=== PATIENT | male | born 1970 | race African-American/Black ===

== ENCOUNTER 2017-11-14 06:31 | Emergency (ER) | payer OTHER ==
[~2017-11-14] VITALS: Ht 185.4 cm; Wt 102.5 kg
[~2017-11-14 06:31] MED LIST: CARI-277 PO; HYDR-4683 PO
[2017-11-14 08:59] VITALS: BP 117/77
== END 2017-11-14 10:44 | disposition home or self-care (01) ==
LOC: ER 06:31
DX: S86.911A Strain of unspecified muscle(s) and tendon(s) at lower leg level, right leg, initial encounter (principal); M70.51 Other bursitis of knee, right knee; F17.210 Nicotine dependence, cigarettes, uncomplicated; X58.XXXA Exposure to other specified factors, initial encounter; Y93.89 Activity, other specified; Y92.89 Other specified places as the place of occurrence of the external cause; Y99.8 Other external cause status
CPT/HCPCS: 73562

== ENCOUNTER 2019-10-29 00:02 | Emergency (ER) | payer OTHER ==
[~2019-10-29] VITALS: Ht 185.4 cm; Wt 103.0 kg
[~2019-10-29 00:02] MED LIST changes: -HYDR-4683 PO; +HYDR-4833 PO
[2019-10-29] MEDS ORDERED: KETOROLAC TROMETH 60MG/2ML VIAL IM ONE (01:00)
[2019-10-29 01:27] VITALS: BP 117/77
== END 2019-10-29 01:46 | disposition home or self-care (01) ==
LOC: ER 00:03
DX: Z48.00 Encounter for change or removal of nonsurgical wound dressing (principal); M79.675 Pain in left toe(s); F17.210 Nicotine dependence, cigarettes, uncomplicated; Z79.899 Other long term (current) drug therapy
CPT/HCPCS: 73660; 96372; 99283; J1885

== ENCOUNTER 2025-01-07 15:49 | Emergency (ER) | payer OTHER ==
[~2025-01-07] VITALS: Ht 185.4 cm; Wt 95.8 kg
[2025-01-07 16:17] VITALS: BP 105/89; PULSE 91; RESP 19; TEMP 97.6; O2SAT 98
--- NOTE | 2025-01-07 16:46 | DVH ---
CLINICAL INDICATION: fall TECHNIQUE: 2 radiographic views of the thoracic spine were obtained. Comparison: None FINDINGS/IMPRESSION: Bony alignment is normal. There are no subluxations. HS:Y
[2025-01-07] MEDS ORDERED: METH-1181 PO (16:51)
[2025-01-07] MEDS ORDERED: IBUP-1454 PO (16:51)
--- NOTE | 2025-01-07 16:51 | ED.PDOC ---
Back pain HPI HPI Comments 34-year-old male with a pertinent MHx presents with back and neck pain following a slip and fall The patient slipped on a glazed to break at the entrance of the store resulting in nonradiating localized pain to the mid lower back. He currently rates his pain as moderate to severe and reports that the pain is aggravated with lateral movements No associated symptoms. Denies any neurological symptoms such as bladder it continence or neurological deficits No head injury no vomiting in his not on blood thinners No episode of amnesia Chief Complaint: Fall Injury Time Seen by MD: 15:59 Primary Care Provider: SHA Reviewed Notes: Nurses Notes, Medications, Allergies Allergies: Coded Allergies: NO KNOWN ALLERGIES (Unverified , 11/14/17) Home Meds Active Scripts Methocarbamol (Methocarbamol) 500 Mg Tab, 500 MG PO Q8HP PRN for 10 Days, #30 TAB 0 Refills Prov:ANNALEE ARAUJO MANAGER LABOR RELATIONS 01/07/25 Ibuprofen (Ibuprofen) 600 Mg Tab, 1 TAB PO TIDPRN PRN for 10 Days, #30 TAB 0 Refills Prov:ANNALEE ARAUJO MANAGER LABOR RELATIONS 01/07/25 Reported Medications Hydrocodone-Acetaminophen ([place] 5/325MG) 1 Tab Tb, 1 TAB PO PRN, #90 TAB 01/13/16 Carisoprodol (Soma) 350 Mg Tab, 350 MG PO PRN, TAB 01/13/16 Information Source: Patient Mode of Arrival: Ambulatory Past Medical History PAST MEDICAL HISTORY: Anxiety Surgical History: Hernia Repair Family History Family History: Unobtainable Social History Smoker: Cigarettes Alcohol: Occasionally Drugs: Denies Drug Use Lives In: Home All Other Systems: Reviewed and Negative (PER HPI) Physical Exam General Appearance: No Apparent Distress, Normal HEENT: Normal ENT Inspection, Pharynx Normal, TMs Normal Neck: Full Range of Motion, Non-Tender, Normal, Normal Inspection Respiratory: Chest Non-Tender, Lungs Clear, No Accessory Muscle Use, No Respiratory Distress, Normal Breath Sounds Cardiovascular: No Edema, No JVD, No Murmur, No Gallop, Normal Peripheral Pulses, Regular Rate/Rhythm Breast Exam: Deferred Gastrointestinal: No Organomegaly, Non Tender, No Pulsatile Mass, Normal Bowel Sounds, Soft Genitalia: Deferred Pelvic: Deferred Rectal: Deferred Extremities: No calf tenderness, Normal capillary refill, Normal inspection, Normal range of motion, Non-tender, No pedal edema Musculoskeletal : Apperance: Normal Neurologic: Alert, critical care registered nurse II-XII nml as Tested, No Motor Deficits, Normal Affect, Normal Mood, No Sensory Deficits Cerebellar Function: Normal Reflexes: Normal Skin: Dry, Normal Color, Warm Lymphatic: No Adenopathy Was a procedure done? Was a procedure done?: No Back Pain Differential Dx Differential Diagnosis: Musculoskeletal Pain X-Ray, Labs, Meds, VS Vital Signs Date Time Temp Pulse Resp B/P (MAP) Pulse Ox O2 Delivery O2 Flow Rate FiO2 01/07/25 16:17 91 19 98 Room Air 01/07/25 16:17 97.6 91 19 105/89 (94) 98 97.6 01/07/25 15:50 97.6 91 19 105/89 98 97.6 X-Ray, Labs, Meds, VS Comment I considered cauda equina, spinal cord compression, vertebral malignancy/mets, acute spinal fracture, vertebral osteomyelitis, epidural abscess, infected or obstructed kidney stone, however this is less likely as the patient does not present with lower back pain red flags symptoms such as bowel or bladder dysfunction, saddle anesthesia, paresthesia, and without any history of malignancy or recent back trauma or spinal interventions. Therefore imaging studies such as a lumbar MRI were not indicated on today's visit. Presentation most consistent with nonemergent musculoskeletal etiology versus nonemergent disc herniation. ED workup: Defer imaging and lab work for outpatient follow up at this time Disposition: Discharge. Strict return precautions discussed with the patient with full understanding. Supportive care advised (rest, ice, heat, NSAIDs, stretching exercises) Massage muscles with cold pack or ice for 20 minutes 4 times per day. Usually most useful if there is swelling during the first 48 hours Heating pad on the most painful area for 20 minutes to relieve muscle spasm Sleep and the most comfortable sleeping position (usually on the side with knees bent) Light stretching, no strenuous activity, avoid frequent bending, avoid carrying heavy objects Discussed possible benefits of yoga and acupuncture Return precautions discussed including Inability to walk/bear weight Paresthesia/weakness/leg pain Fecal/urinary incontinence Any worsening symptoms On reevaluation, patient had symptomatic improvement. Patient is stable for discharge at this time. External notes reviewed. Test results and diagnostic imaging interpreted. All diagnostic findings, discharge care, education and instructions provided Follow-up with PCP in 2 to 3 days Patient verbalized understanding and agreed to treatment plan Vital signs stable, afebrile, no acute distress noted Patient ambulatory with strong steady gait Advised to return precautions for any new or worsening symptoms, return to ER immediately for re-evaluation Patient is aware that the purpose of this visit was for an acute medical emergency requiring emergent stabilization. Chronic conditions, including malignancies have not been ruled out. Patient is instructed to follow up with PCP as directed and discharge instructions for continued care and workup. If unable to arrange follow-up, patient is to return to the emergency department for reassessment. Patient (parent or legal guardian if applicable) was given verbal and written discharge instructions and acknowledges understanding. Time of 1ST Reevaluation: 16:30 Reevaluation 1ST: Improved Patient Education/Counseling: Diagnosis, Treatment Family Education/Counseling: Diagnosis, Treatment SEPSIS Sepsis Screen Date sepsis recognized/suspect: Jan 07, 2025 Time Sepsis recognized/suspect: 155 Recent Procedure: No On Antibiotic Therapy: No Respiratory Rate >20: No Heart Rate >90: Yes Temp<36 C (96.8 F) or >38.3 C: No SBP <90 or MAP <65 mmHG: No New Acute Mental Status Change: No Is the patient on CPAP, BIPAP,: No Physician Orders Spine Thoracic 2view (01/07/25 16:09) Vital Signs Date Time Temp Pulse Resp B/P (MAP) Pulse Ox O2 Delivery O2 Flow Rate FiO2 01/07/25 16:17 91 19 98 Room Air 01/07/25 16:17 97.6 91 19 105/89 (94) 98 97.6 01/07/25 15:50 97.6 91 19 105/89 98 97.6 Departure 1 Departure Time of Disposition: 16:49 Impression: Primary Impression: Fall Qualified Codes: W19.XXXA - Unspecified fall, initial encounter Disposition: HOME / SELF CARE / HOMELESS Condition: Stable e-Prescriptions Methocarbamol (Methocarbamol) 500 Mg Tab 500 MG PO Q8HP PRN for 10 Days, #30 TAB 0 Refills Prov: ANNALEE ARAUJO MANAGER LABOR RELATIONS 01/07/25 Ibuprofen (Ibuprofen) 600 Mg Tab 1 TAB PO TIDPRN PRN for 10 Days, #30 TAB 0 Refills Prov: ANNALEE ARAUJO MANAGER LABOR RELATIONS 01/07/25 Critical Care Note Critical Care Time?: No Stability Stability form required: No Heart Score Heart Score: Heart Score Response (Comments) Value History N/A 0 EKG N/A 0 Age N/A 0 Risk Factors N/A 0 Troponin N/A 0 Total 0 ANNALEE ARAUJO NP Jan 07, 2025 16:51
== END 2025-01-07 17:15 | disposition home or self-care (01) ==
LOC: ER 15:49
DX: M54.2 Cervicalgia (principal); M54.50 Low back pain, unspecified; F17.210 Nicotine dependence, cigarettes, uncomplicated; Z98.890 Other specified postprocedural states; W01.0XXA Fall on same level from slipping, tripping and stumbling without subsequent striking against object, initial encounter; Y93.89 Activity, other specified; Y92.89 Other specified places as the place of occurrence of the external cause; Y99.8 Other external cause status
CPT/HCPCS: 72070